=== PATIENT | male | born 1955 | race Hispanic/Latino ===

== ENCOUNTER 2018-01-01 16:20 | Outpatient (CLI) | payer MEDICARE | END 2018-01-01 16:21 | disposition home or self-care (01) | LOC: BICRAD 16:20 | PROVIDERS: ATTEND Internal Medicine Rheumatology | DX: M45.9 Ankylosing spondylitis of unspecified sites in spine (principal); R76.12 Nonspecific reaction to cell mediated immunity measurement of gamma interferon antigen response without active tuberculosis | CPT/HCPCS: 71046 ==

== ENCOUNTER 2019-07-28 14:37 | Outpatient (CLI) | payer MEDICARE, BC ==
--- NOTE | 2019-07-28 15:15 | RAD ---
PA AND LATERAL CHEST: HISTORY: Nonspecific reaction to gamma interferon. Positive TB blood test. FINDINGS: The heart size is normal. The aorta is tortuous. The lungs are well expanded without focal areas of c onsolidation, pneumothoraces or pleural effusions. There are degenerative changes in the spine. IMPRESSION: No radiographic evidence of active pulmonary tuberculosis. POS: OFF
== END 2019-07-28 14:38 | disposition home or self-care (01) ==
LOC: BICRAD 14:37
PROVIDERS: ATTEND Internal Medicine Rheumatology
DX: R76.12 Nonspecific reaction to cell mediated immunity measurement of gamma interferon antigen response without active tuberculosis (principal)
CPT/HCPCS: 71046

== ENCOUNTER 2019-10-17 09:43 | Outpatient (CLI) | payer MEDICARE, BC ==
--- NOTE | 2019-10-17 11:17 | RAD ---
TWO VIEWS LUMBAR SPINE: HISTORY: Lumbar radiculopathy. Pain. FINDINGS: Five lumbar-type vertebrae. Vertebral body heights are maintained. There is no fracture. On the lateral weightbearing view, 2.2 mm of retrolisthesis of L2 upon L3. No spondylolysis right fac et arthropathy at L5-S1. IMPRESSION: 1. No significant loss of disc space height. 2. No fracture. 3. Grade 1 retrolisthesis of L2 upon L3. Transcribed Date/Time: 10/17/2019 11:36 AM
--- NOTE | 2019-10-17 11:52 | MRI ---
MRI LUMBAR SPINE NONCONTRAST: HISTORY: Lumbar radicular pain. Low back pain, radiating down the left leg. COMPARISON: 05/14/2013. FINDINGS: Appropriate T1 marrow signal intensity of the lumbar vertebrae. Lumbar spine vertebral body heights a re maintained and there is no fracture. No significant STIR hyperintensity to suggest vertebral body edema or ligamentous injury. Appropriate signal intensity of the visualized paraspinal muscles. Redemonstration of exophytic T2 hyperintensities as well as nonexophytic T2 hyperintensities in the l eft and right renal cortex, compatible with cortical cysts. Conus medullaris terminates at the T12-L1 disc space. T12-L1:No significant central canal stenosis or significant neural foraminal narrowing. L1-L2:Adequate disc hydration. Minimal left and right paracentral disc bulges, minimal ligament flavu m thickening and facet hypertrophy. No significant central canal stenosis. Neural foramina are patent bilaterally. L2-L3: Minimal desiccation with minimal loss of disc space height. Broad-based disc bulge, mild ligam ent flavum thickening result in mild central canal stenosis. Minimal narrowing of both subarticular zones without significant mass effect or obscuration. Right neural foramen is patent. Mild left neura l foraminal narrowing. L3-L4: Minimal desiccation without significant loss of disc space height. Broad-based disc bulge with a central/left subarticular disc herniation. There is inferior disc extrusion into the left subarticular zone. The inferior extruded fragment measures 0.9 cm in the craniocaudal dimension. At t he disc space, there is moderate stenosis of the thecal sac. There is severe narrowing of the left subarticular zone with mass effect and complete obscuration of the traversing left L4 nerve root. Mil d bilateral neural foraminal narrowing. L4-L5:Disc desiccation with mild loss of disc space height. Broad-based disc bulge, ligament flavum t hickening and facet hypertrophy result in moderate stenosis of the thecal sac. Narrowing of bilateral subarticular zones with partial obscuration of bilateral traversing L5 nerve roots. Moderat e bilateral neural foraminal narrowing. L5-S1:Desiccation with mild loss of disc space height. Broad-based disc bulge does not cause any mass effect upon the thecal sac. There is a right hemilaminotomy defect. Bilateral facet hypertrophy is noted. Mild narrowing of the right subarticular zone due to disc material and facet hypertrophy. Ther e is partial obscuration if the traversing right S1 nerve root. Left subarticular zone is unremarkable. Mild bilateral neural foraminal narrowing. IMPRESSION: 1. Multilevel degenerative changes of the lumbar spine as described above. There is a inferior disc e xtrusion in the left subarticular zone at L3-L4 which was not present on the previous examination. Complete obscuration of the traversing left L4 nerve root. 2. Redemonstration of degenerative changes at L4-L5 and L5-S1. Right hemilaminotomy defect is once ag ain noted. Narrowing of the right subarticular zone at L5-S1 is redemonstrated. Transcribed Date/Time: 10/17/2019 12:03 PM
== END 2019-10-17 09:44 | disposition home or self-care (01) ==
LOC: BICMRI 09:43
PROVIDERS: ATTEND Family Medicine
DX: M47.26 Other spondylosis with radiculopathy, lumbar region (principal); G89.4 Chronic pain syndrome; M51.16 Intervertebral disc disorders with radiculopathy, lumbar region; M47.27 Other spondylosis with radiculopathy, lumbosacral region; Z98.890 Other specified postprocedural states; M48.07 Spinal stenosis, lumbosacral region; M43.16 Spondylolisthesis, lumbar region
CPT/HCPCS: 72100; 72148

== ENCOUNTER 2020-07-14 08:18 | Outpatient (CLI) | payer MEDICARE, BC ==
--- NOTE | 2020-07-14 09:13 | MRI ---
MRI Cervical spine without contrast: HISTORY: Cervicalgia. Bilateral hand and arm numbness. Neck pain. No history of injury. COMPARISON: None FINDINGS: The craniocervical junction is unremarkable. No significant cord signal abnormality. Paravertebral soft tissues have a normal appearance and normal signal intensity. C1-2:No significant stenosis. C2-3: Central disc osteophyte complex is present. This does narrow the ventral subarachnoid space. Ne ural foramina are patent. C3-4: Central disc osteophyte complex is present which results in effacement of the ventral subarachn oid space and encroaches on the anterior aspect of the spinal cord. Mild facet degenerative changes seen at this level. Neural foramina are patent. C4-5: There is a disc osteophyte complex present with central disc protrusion. Facet hypertrophic nohelia nges are seen greater on the right. There is also mild ligamentous thickening posteriorly. Findings result in generalized narrowing of the central spinal canal with slight flattening of the anterior as pect of the spinal cord. Mild bilateral neural foraminal narrowing is present. C5-6: There is loss of intervertebral disc height with mild endplate degenerative changes. There is a disc osteophyte complex present with facet degenerative changes greater on the right. There is mild generalized narrowing of the central spinal canal. Mild to moderate right and moderate left-side d neural foraminal narrowing are present. C6-7: Mild loss of intervertebral disc height with disc osteophyte complex present. This narrows the ventral subarachnoid space. Right neural foramen is patent, and there is mild left-sided neural foraminal narrowing. C7-T1: Central disc protrusion with posterior osteophyte formation. This narrows the ventral subarach noid space with encroachment on the anterior aspect of the spinal cord. Neural foramina are patent IMPRESSION: Degenerative changes within the cervical spine without high-grade central canal or neural foraminal n arrowing.
== END 2020-07-14 08:19 | disposition home or self-care (01) ==
LOC: TBSIIMAG 08:18
PROVIDERS: ATTEND Nurse Practitioner Acute Care
DX: M54.2 Cervicalgia (principal); M47.812 Spondylosis without myelopathy or radiculopathy, cervical region
CPT/HCPCS: 72141

== ENCOUNTER 2020-09-29 11:12 | Outpatient (CLI) | payer MEDICARE, BC ==
--- NOTE | 2020-09-29 11:51 | RAD ---
RADIOGRAPH CHEST 2 VIEWS: DATE: 09/29/2020 HISTORY: 64-year-old male with ankylosing spondylitis. "Checkup" FINDINGS: There is no airspace density, pulmonary edema, pleural effusion, pneumothorax, or cardiomegaly. There is an ill-defined, approximately 1 to 2 cm nodular density projecting over the left lateral lower lung zone. It is either stable or slightly larger than on 07/28/2019. It was not present on 01/01/2018 or 11/30/2016. There are mild to moderate flowing ventral endplate marginal osteophytes throughout the mid thoracic spine, which is more typical for DISH rather than ankylosing spondylitis. There is n o evidence of bamboo spine. IMPRESSION: 1. No acute cardiopulmonary findings. 2. Slowly growing nodular density at left lateral lower lung zone. Recommend frontal chest radiograph with nipple markers, with arms up, and arms down. 3. Findings in thoracic spine are more consistent with mild DISH (diffuse idiopathic skeletal hyperos tosis) than with ankylosing spondylitis.
== END 2020-09-29 11:13 | disposition home or self-care (01) ==
LOC: BICRAD 11:12
PROVIDERS: ATTEND Internal Medicine Rheumatology
DX: M45.9 Ankylosing spondylitis of unspecified sites in spine (principal); J98.4 Other disorders of lung
CPT/HCPCS: 71046

== ENCOUNTER 2020-11-30 19:00 | Outpatient (CLI) | payer MEDICARE, BC | END 2020-11-30 19:01 | disposition home or self-care (01) | LOC: SLEEPLAB 19:00 | PROVIDERS: ATTEND Urology | DX: G47.33 Obstructive sleep apnea (adult) (pediatric) (principal); R53.83 Other fatigue; E66.9 Obesity, unspecified; R06.83 Snoring; Z68.41 Body mass index [BMI] 40.0-44.9, adult | CPT/HCPCS: 95810 ==

== ENCOUNTER 2020-12-15 19:00 | Outpatient (CLI) | payer MEDICARE, BC | END 2020-12-15 19:01 | disposition home or self-care (01) | LOC: SLEEPLAB 19:00 | PROVIDERS: ATTEND Urology | DX: G47.33 Obstructive sleep apnea (adult) (pediatric) (principal); R53.83 Other fatigue; R06.83 Snoring; G47.10 Hypersomnia, unspecified; E66.9 Obesity, unspecified; Z68.41 Body mass index [BMI] 40.0-44.9, adult | CPT/HCPCS: 95811 ==

== ENCOUNTER 2020-12-29 13:23 | Outpatient (CLI) | payer MEDICARE, BC | END 2020-12-29 13:24 | disposition home or self-care (01) | LOC: BICRAD 13:23 | PROVIDERS: ATTEND Internal Medicine Rheumatology | DX: M45.9 Ankylosing spondylitis of unspecified sites in spine (principal) | CPT/HCPCS: 71046 ==

== ENCOUNTER 2022-04-20 08:28 | Outpatient (CLI) | payer MEDICARE, BC | END 2022-04-20 08:29 | disposition home or self-care (01) | LOC: BICRAD 08:28 | PROVIDERS: ATTEND Internal Medicine Rheumatology | DX: M45.9 Ankylosing spondylitis of unspecified sites in spine (principal) | CPT/HCPCS: 71046 ==

== ENCOUNTER → 2022-12-28 | Outpatient (CLI) | payer MEDICARE, BC | LOC: SLEEPLAB 18:00 | PROVIDERS: ATTEND Internal Medicine Critical Care Medicine | DX: G47.33 Obstructive sleep apnea (adult) (pediatric) (principal) | CPT/HCPCS: 95800 ==

== ENCOUNTER 2023-05-15 15:18 | Outpatient (CLI) | payer MEDICARE, BC | END 2023-05-15 15:19 | disposition home or self-care (01) | LOC: BICMAMMO 15:18 | PROVIDERS: ATTEND Internal Medicine Rheumatology | DX: M81.0 Age-related osteoporosis without current pathological fracture (principal); M85.851 Other specified disorders of bone density and structure, right thigh; M85.852 Other specified disorders of bone density and structure, left thigh | CPT/HCPCS: 77080 ==

== ENCOUNTER 2023-10-19 15:46 | Outpatient (CLI) | payer MEDICARE | END 2023-10-19 15:47 | disposition home or self-care (01) | LOC: BICRAD 15:46 | PROVIDERS: ATTEND Internal Medicine Rheumatology | DX: R76.12 Nonspecific reaction to cell mediated immunity measurement of gamma interferon antigen response without active tuberculosis (principal) | CPT/HCPCS: 71046 ==

== ENCOUNTER 2025-06-16 13:50 | Inpatient (IN) | payer MEDICARE ==
[2025-06-16 14:27] LABS: #Basophils 0.05 10x3/uL (0.0-0.2); #Eosinophils 0.13 10x3/uL (0.0-0.7); #Monocytes 0.87 10x3/uL (0.11-0.59); #Neutrophils 8.11 10x3/uL (1.40-6.50); %Basophils 0.5 % (0.0-1.0); %Eosinophils 1.3 % (0.0-10.0); %Lymphocytes 4.5 % (21.0-51.0); %Monocytes 9.0 % (0.0-10.0); %Neutrophils 84.2 % (42.0-75.0); Hematocrit 31.3 % (42.0-52.0); Hemoglobin 10.0 g/dL (14.0-18.0); Mean Corpuscular Hemoglobin 31.8 pg (27.0-31.0); Mean Corpuscular Volume 99.7 fL (78.0-98.0); Platelet Count 185 10x3/uL (130-400); Red Blood Cell (RBC) Count 3.14 mill/uL (4.70-6.10); White Blood Cell (WBC) Count 9.64 10x3/uL (4.8-10.8)
[2025-06-16 14:48] LABS: ALT (SGPT) 71 U/L (Less than 45); AST (SGOT) 271 U/L (11-34); Albumin 3.1 g/dL (3.1-4.5); Alkaline Phosphatase 132 U/L (40-110); Anion Gap 18 mmol/L (10-20); BUN (Urea Nitrogen) 61 mg/dL (8.4-25.7); Bilirubin, Total 0.7 mg/dL (0.3-1.2); Calc. Creatinine Clearance 0 mL/min (70-130); Calcium 8.3 mg/dL (7.8-10.44); Carbon Dioxide 15 mmol/L (23-31); Chloride 104 mmol/L (98-107); Globulin 3.1 g/dL (2.4-3.5); Glucose 113 mg/dL (80-115); Potassium 4.0 mmol/L (3.5-5.1); Sodium 133 mmol/L (136-145)
[2025-06-16 15:47] LABS: Acetaminophen Less than 10 mcg/mL (Less than 10); Salicylate Less than 8.0 mg/dL (Less than 8.0)
[2025-06-16] MEDS ORDERED: Senokot S 8.6-50 MG TAB PO PRN (17:05)
[2025-06-16] MEDS ORDERED: Ondansetron PF 4 MG/2 ML Vial IVP PRN (17:05)
[2025-06-16] MEDS ORDERED: Melatonin 3 MG TAB PO PRN (17:05)
[2025-06-16] MEDS ORDERED: Communication Order-Pharmacy FS SCH (17:06)
[2025-06-16 19:25] LABS: Cocaine Metabolite Screen Negative (Negative); THC/Cannabinoid Screen Negative (Negative); Tricyclic Screen Negative (Negative)
[2025-06-16 19:47] LABS: CAUTI Indications for Culture Pelvic or flank pain; Glucose, Urine (Dipstick) 300 mg/dL (Negative); Leukocyte Negative Leu/uL (Negative); Protein, Urine (Dipstick) 20 mg/dL (Neg-Trace); Specific Gravity, Urine 1.017 (1.002-1.036); WBC/HPF 0-3 HPF (0-3)
[2025-06-16 19:58] LABS: Bacteria/HPF 1+ HPF (None Seen)
[2025-06-16 20:00] LABS: Urine Culture Reflex No No
[2025-06-16] MEDS: Heparin 5,000 UNITS/ML VIAL SC SCH (22:36)
[2025-06-17 02:13] VITALS: BMI 35.6
[2025-06-17 04:47] LABS: #Basophils Less than 0.03 10x3/uL (0.0-0.2); #Eosinophils 0.18 10x3/uL (0.0-0.7); #Monocytes 1.10 10x3/uL (0.11-0.59); #Neutrophils 5.23 10x3/uL (1.40-6.50); %Basophils 0.3 % (0.0-1.0); %Eosinophils 2.5 % (0.0-10.0); %Lymphocytes 9.3 % (21.0-51.0); %Monocytes 15.2 % (0.0-10.0); %Neutrophils 72.4 % (42.0-75.0); Hematocrit 27.3 % (42.0-52.0); Hemoglobin 8.7 g/dL (14.0-18.0); Mean Corpuscular Hemoglobin 31.6 pg (27.0-31.0); Mean Corpuscular Volume 99.3 fL (78.0-98.0); Platelet Count 163 10x3/uL (130-400); Red Blood Cell (RBC) Count 2.75 mill/uL (4.70-6.10); White Blood Cell (WBC) Count 7.22 10x3/uL (4.8-10.8)
[2025-06-17 05:10] LABS: ALT (SGPT) 84 U/L (Less than 45); AST (SGOT) 353 U/L (11-34); Albumin 2.5 g/dL (3.1-4.5); Alkaline Phosphatase 106 U/L (40-110); Anion Gap 15 mmol/L (10-20); BUN (Urea Nitrogen) 59 mg/dL (8.4-25.7); Bilirubin, Total 0.6 mg/dL (0.3-1.2); Calc. Creatinine Clearance 28 mL/min (70-130); Calcium 7.8 mg/dL (7.8-10.44); Carbon Dioxide 16 mmol/L (23-31); Chloride 110 mmol/L (98-107); Globulin 2.7 g/dL (2.4-3.5); Glucose 96 mg/dL (80-115); Potassium 3.7 mmol/L (3.5-5.1); Sodium 137 mmol/L (136-145)
[2025-06-17] MEDS: Acetaminophen 325 MG TAB PO PRN (10:42)
[2025-06-17] MEDS: Sodium Bicarbonate Tab 325 MG TAB PO SCH (10:43)
[2025-06-17] MEDS: Pantoprazole 40 MG VIAL IVP SCH ×2 (10:43→23:02)
[2025-06-17] MEDS: PNEUMOC 20-VAL CONJ-DIP CRM/PF 0.5 ML SYRINGE IM ONE (12:11)
[2025-06-17] MEDS: Albumin 25% 25 GM (100 mL) BOT IVPB SCH (12:13)
[2025-06-17 14:09] VITALS: BMI 35.6
[2025-06-18 05:48] LABS: #Basophils 0.03 10x3/uL (0.0-0.2); #Eosinophils 0.40 10x3/uL (0.0-0.7); #Monocytes 0.63 10x3/uL (0.11-0.59); #Neutrophils 2.54 10x3/uL (1.40-6.50); %Basophils 0.7 % (0.0-1.0); %Eosinophils 9.8 % (0.0-10.0); %Lymphocytes 12.0 % (21.0-51.0); %Monocytes 15.4 % (0.0-10.0); %Neutrophils 61.9 % (42.0-75.0); Hematocrit 23.3 % (42.0-52.0); Hemoglobin 7.5 g/dL (14.0-18.0); Mean Corpuscular Hemoglobin 31.8 pg (27.0-31.0); Mean Corpuscular Volume 98.7 fL (78.0-98.0); Platelet Count 146 10x3/uL (130-400); Red Blood Cell (RBC) Count 2.36 mill/uL (4.70-6.10); White Blood Cell (WBC) Count 4.10 10x3/uL (4.8-10.8)
[2025-06-18 06:02] LABS: Anion Gap 13 mmol/L (10-20); BUN (Urea Nitrogen) 45 mg/dL (8.4-25.7); Calc. Creatinine Clearance 43 mL/min (70-130); Calcium 7.8 mg/dL (7.8-10.44); Carbon Dioxide 17 mmol/L (23-31); Chloride 117 mmol/L (98-107); Glucose 77 mg/dL (80-115); Potassium 3.6 mmol/L (3.5-5.1); Sodium 143 mmol/L (136-145)
[2025-06-18 06:06] LABS: ALT (SGPT) 84 U/L (Less than 45); AST (SGOT) 296 U/L (11-34); Albumin 3.0 g/dL (3.1-4.5); Alkaline Phosphatase 97 U/L (40-110); Bilirubin, Direct 0.5 mg/dL (0.1-0.3); Bilirubin, Total 0.7 mg/dL (0.3-1.2); INR-International Normal Ratio 1.3; Iron 18 ug/dL (65-175); Iron Binding Capacity, Total 185 mcg/dL (261-462); Prothrombin Time 16.4 sec (12.0-14.7)
[2025-06-18 06:20] LABS: CK (CPK) 5913 U/L (30-200)
[2025-06-18 06:22] LABS: Iron 18 ug/dL (65-175)
[2025-06-18 06:37] LABS: Ferritin 198.93 ng/mL (22-322); Vitamin B12 668.0 pg/mL (211-911)
[2025-06-18] MEDS: cefTRIAXone\\ROCEPHIN 1 GM in Sodium Chloride 0.9% 100 ML IVPB SCH (10:50)
[2025-06-18] MEDS: GoLYTELY 4,000 ml Bottle PO SCH (21:39)
[2025-06-19 05:13] LABS: #Basophils 0.03 10x3/uL (0.0-0.2); #Eosinophils 0.51 10x3/uL (0.0-0.7); #Monocytes 0.70 10x3/uL (0.11-0.59); #Neutrophils 2.14 10x3/uL (1.40-6.50); %Basophils 0.8 % (0.0-1.0); %Eosinophils 12.8 % (0.0-10.0); %Lymphocytes 14.6 % (21.0-51.0); %Monocytes 17.6 % (0.0-10.0); %Neutrophils 53.9 % (42.0-75.0); Hematocrit 24.0 % (42.0-52.0); Hemoglobin 7.7 g/dL (14.0-18.0); Mean Corpuscular Hemoglobin 31.3 pg (27.0-31.0); Mean Corpuscular Volume 97.6 fL (78.0-98.0); Platelet Count 156 10x3/uL (130-400); Red Blood Cell (RBC) Count 2.46 mill/uL (4.70-6.10); White Blood Cell (WBC) Count 3.97 10x3/uL (4.8-10.8)
[2025-06-19 05:46] LABS: Anion Gap 11 mmol/L (10-20); BUN (Urea Nitrogen) 29 mg/dL (8.4-25.7); CK (CPK) 2563 U/L (30-200); Calc. Creatinine Clearance 65 mL/min (70-130); Calcium 8.3 mg/dL (7.8-10.44); Carbon Dioxide 19 mmol/L (23-31); Chloride 118 mmol/L (98-107); Glucose 95 mg/dL (80-115); Potassium 3.3 mmol/L (3.5-5.1); Sodium 145 mmol/L (136-145)
[2025-06-19] MEDS ORDERED: PROPOFOL 20 ML ONE ×3 (07:17→08:19)
[2025-06-19] MEDS ORDERED: Lidocaine 1% PF 5 ML VIAL ONE (07:17)
[2025-06-19] MEDS ORDERED: PHENYLEPHRINE-NS 100 MCG/ML 10 ML SYRINGE ONE (07:19)
[2025-06-19] MEDS ORDERED: GLYCOPYRROLATE/PF 0.2 MG/ML VIAL ONE (07:53)
[2025-06-19] MEDS ORDERED: diphenhydrAMINE 50 MG/ML VIAL ONE (08:37)
[2025-06-19] MEDS: Calcitriol 0.25 MCG CAP PO SCH (09:39)
[2025-06-20 05:25] LABS: #Basophils 0.04 10x3/uL (0.0-0.2); #Eosinophils 0.50 10x3/uL (0.0-0.7); #Monocytes 0.70 10x3/uL (0.11-0.59); #Neutrophils 2.39 10x3/uL (1.40-6.50); %Basophils 0.9 % (0.0-1.0); %Eosinophils 11.2 % (0.0-10.0); %Lymphocytes 18.2 % (21.0-51.0); %Monocytes 15.7 % (0.0-10.0); %Neutrophils 53.8 % (42.0-75.0); Hematocrit 26.6 % (42.0-52.0); Hemoglobin 8.7 g/dL (14.0-18.0); Mean Corpuscular Hemoglobin 32.1 pg (27.0-31.0); Mean Corpuscular Volume 98.2 fL (78.0-98.0); Platelet Count 170 10x3/uL (130-400); Red Blood Cell (RBC) Count 2.71 mill/uL (4.70-6.10); White Blood Cell (WBC) Count 4.45 10x3/uL (4.8-10.8)
[2025-06-20 05:42] LABS: ALT (SGPT) 84 U/L (Less than 45); AST (SGOT) 165 U/L (11-34); Albumin 3.2 g/dL (3.1-4.5); Alkaline Phosphatase 136 U/L (40-110); Anion Gap 16 mmol/L (10-20); BUN (Urea Nitrogen) 23 mg/dL (8.4-25.7); Bilirubin, Total 0.4 mg/dL (0.3-1.2); CK (CPK) 1266 U/L (30-200); Calc. Creatinine Clearance 73 mL/min (70-130); Calcium 8.7 mg/dL (7.8-10.44); Carbon Dioxide 21 mmol/L (23-31); Chloride 116 mmol/L (98-107); Globulin 2.8 g/dL (2.4-3.5); Glucose 102 mg/dL (80-115); Potassium 3.7 mmol/L (3.5-5.1); Sodium 149 mmol/L (136-145)
[2025-06-20] MEDS ORDERED: Metoprolol Succinate XL 25 MG ER.TAB PO SCH (09:00)
[2025-06-20] MEDS ORDERED: Losartan 25 MG TAB PO SCH (09:00)
[2025-06-20] MEDS: Pantoprazole 40 MG DR.TAB PO SCH (10:31)
[2025-06-20 10:38] LABS: Magnesium 2.1 mg/dL (1.6-2.6)
[2025-06-20] MEDS: EPOETIN ALFA-EPBX (ESRD) 10,000 UNITS/ML VIAL SC SCH (12:02)
[2025-06-20] MEDS: Ferrous Sulfate 325 MG TAB PO SCH (18:16)
[2025-06-21] MEDS: Guaifenesin DM 100-10/5 ML UDCUP PO PRN (00:15)
[2025-06-21 04:47] LABS: #Basophils 0.07 10x3/uL (0.0-0.2); #Eosinophils 0.74 10x3/uL (0.0-0.7); #Monocytes 0.92 10x3/uL (0.11-0.59); #Neutrophils 3.14 10x3/uL (1.40-6.50); %Basophils 1.2 % (0.0-1.0); %Eosinophils 13.1 % (0.0-10.0); %Lymphocytes 13.8 % (21.0-51.0); %Monocytes 16.2 % (0.0-10.0); %Neutrophils 55.3 % (42.0-75.0); Hematocrit 26.7 % (42.0-52.0); Hemoglobin 8.8 g/dL (14.0-18.0); Mean Corpuscular Hemoglobin 32.1 pg (27.0-31.0); Mean Corpuscular Volume 97.4 fL (78.0-98.0); Platelet Count 158 10x3/uL (130-400); Red Blood Cell (RBC) Count 2.74 mill/uL (4.70-6.10); White Blood Cell (WBC) Count 5.67 10x3/uL (4.8-10.8)
[2025-06-21 05:16] LABS: Anion Gap 13 mmol/L (10-20); BUN (Urea Nitrogen) 14 mg/dL (8.4-25.7); Calc. Creatinine Clearance 88 mL/min (70-130); Calcium 8.5 mg/dL (7.8-10.44); Carbon Dioxide 19 mmol/L (23-31); Chloride 114 mmol/L (98-107); Glucose 86 mg/dL (80-115); Potassium 3.6 mmol/L (3.5-5.1); Sodium 142 mmol/L (136-145)
[2025-06-21 12:29] VITALS: BP 178/86; TEMP 98.2
== END 2025-06-21 13:40 | disposition home or self-care (01) | DRG 682 ==
LOC: ERS 13:50 → MSONC 17:05
PROVIDERS: ADMIT Family Medicine; ATTEND Family Medicine
PROC: 30233J1 Transfusion of Nonautologous Serum Albumin into Peripheral Vein, Percutaneous Approach (ICD-10-PCS; 2025-06-17)
PROC: 3E03329 Introduction of Other Anti-infective into Peripheral Vein, Percutaneous Approach (ICD-10-PCS; 2025-06-17)
PROC: 0DJD8ZZ Inspection of Lower Intestinal Tract, Via Natural or Artificial Opening Endoscopic (ICD-10-PCS; principal; 2025-06-19)
PROC: 0DJ08ZZ Inspection of Upper Intestinal Tract, Via Natural or Artificial Opening Endoscopic (ICD-10-PCS; 2025-06-19)
DX: N17.9 Acute kidney failure, unspecified (principal); G93.41 Metabolic encephalopathy; E87.20 Acidosis, unspecified; M06.9 Rheumatoid arthritis, unspecified; R74.01 Elevation of levels of liver transaminase levels; I95.9 Hypotension, unspecified; E78.5 Hyperlipidemia, unspecified; M19.90 Unspecified osteoarthritis, unspecified site; D64.9 Anemia, unspecified; I12.9 Hypertensive chronic kidney disease with stage 1 through stage 4 chronic kidney disease, or unspecified chronic kidney disease; N18.30 Chronic kidney disease, stage 3 unspecified; T79.6XXA Traumatic ischemia of muscle, initial encounter; E66.9 Obesity, unspecified; F32.A Depression, unspecified; G25.81 Restless legs syndrome; G62.9 Polyneuropathy, unspecified; F32.9 Major depressive disorder, single episode, unspecified; G20.C Parkinsonism, unspecified; Z79.82 Long term (current) use of aspirin; Z79.899 Other long term (current) drug therapy; Z68.25 Body mass index [BMI] 25.0-25.9, adult; Z98.890 Other specified postprocedural states; Z88.8 Allergy status to other drugs, medicaments and biological substances; Z87.81 Personal history of (healed) traumatic fracture; Z79.01 Long term (current) use of anticoagulants
CPT/HCPCS: 36415; 36416; 51701; 70450; 71045; 74176; 76705; 80048; 80053; 80076; 80306; 80307; 81001; 82550; 82607; 82728; 83540; 83550; 83605; 83735; 83970; 84100; 84443; 84484; 85025; 85610; 87040; 87081; 87149; 87428; 87430; 88305; 90471; 90677; 93005; 93010; 94760; 96361; 96374; G0009; J0696; J1200; J1644; J2470; J2543; J2704; J3490; J7030; P9047; Q5105